=== PATIENT | male | born 1965 | race Two or more races ===

== ENCOUNTER 2018-06-04 11:58 | Emergency (ER) | payer MEDICAID, OTHER ==
[~2018-06-04] VITALS: Ht 165.1 cm; Wt 90.7 kg
[~2018-06-04 11:58] MED LIST: LISI-33
[2018-06-04 14:33] VITALS: BP 132/62
== END 2018-06-04 14:54 | disposition home or self-care (01) ==
LOC: ER 11:58
DX: S96.911A Strain of unspecified muscle and tendon at ankle and foot level, right foot, initial encounter (principal); I10 Essential (primary) hypertension; X50.1XXA Overexertion from prolonged static or awkward postures, initial encounter; Y93.89 Activity, other specified; Y92.89 Other specified places as the place of occurrence of the external cause; Y99.8 Other external cause status
CPT/HCPCS: 73610